=== PATIENT | male | born 1975 | race Caucasian/White ===

== ENCOUNTER → 2016-07-29 | Outpatient (CLI) | payer BC ==
[~2016-07-29] MED LIST: ADVIN10/60 INH; OXYC-57 PO
== END | disposition home or self-care (01) ==
LOC: C.PATHSPEC 15:32
PROVIDERS: ATTEND Urology
DX: Z30.2 Encounter for sterilization (principal)

== ENCOUNTER 2016-08-08 18:56 | Emergency (ER) | payer BC ==
[~2016-08-08] VITALS: Ht 177.8 cm; Wt 80.9 kg
[2016-08-08 19:01] VITALS: TEMP 36.7; Ht 177.8 cm; Wt 80.9 kg
[2016-08-08] MEDS ORDERED: OXYCODONE/ACETAMINOPHEN 5-325 TAB PO ONE (19:15)
[2016-08-08 19:38] LABS: URINE APPEARANCE CLEAR (CLEAR); URINE BILIRUBIN NEG (NEG); URINE COLOR YELLOW; URINE NITRITE NEG (NEG); URINE PH 5.5 (4.5-7.5); UROBILINOGEN NEG (NEG); ZZUR CULT IF INDIC CLEAN CATCH NO
[2016-08-08 19:45] LABS: MANUAL MICROSCOPIC REQUIRED? NO; REVIEW REQ? NO
--- NOTE | 2016-08-08 19:56 | EMERGENCY ROOM VISIT NOTE ---
History First contact with patient: 19:04 Chief Complaint: TESTICULAR PAIN Stated Complaint: R TESTICLE SWOLLEN, PAIN 10 DAYS AFTER VASECTOMY History of Present Illness The patient is a 40 year old male who presents to the Emergency Department by private vehicle for evaluation of his RIGHT testicular pain. The patient had a vasectomy performed [address] Zaldivar. He reports that he had been doing well until yesterday. He decided to ride his lawnmower to cut his grass. He felt some mild discomfort while riding a lawnmower. He has had worsening pain and swelling to the RIGHT testicle since. He had to call for today secondary to the pain. This is a first-time he has called off work and 15 years. He has tried ibuprofen without relief of symptoms. The patient rates his current discomfort as a 6/10. The patient denies any fevers, chills, nausea , vomiting, abdominal pain, hematochezia, melena, hematuria, or dysuria. Review of Systems A complete 10-point Review of Systems was discussed with the patient, with pertinent positives and negatives listed in the History of Present Illness. All remaining Review of Systems questions can be considered negative unless otherwise specified. Social History Smoking Status: Never Smoker Smokeless Tobacco Use: No Drug Use: none Marital Status: Housing Status: lives with family Occupation Status: employed Current/Historical Medications Scheduled Fluticasone Prop/Salmeterol (Advair Diskus 100/50 60 Dose), 1 PUFFS INH DAILY Scheduled PRN Oxycodone/Acetaminophen 5MG/325MG (Percocet 5MG/325MG), 1-2 TABS PO Q4 PRN for Pain Allergies Coded Allergies: No Known Allergies (Unverified , 08/08/16) Physical Exam Vital Signs Date Time Temp Pulse Resp B/P Pulse Ox O2 Delivery O2 Flow Rate FiO2 08/08/16 21:01 86 18 173/98 96 Room Air 08/08/16 19:01 36.7 110 16 175/98 99 Room Air Pain Rating (0-10): 6 Physical Exam VITAL SIGNS - Vital signs and nursing notes were reviewed. GENERAL - 40-year-old Male appearing his stated age who is in no acute distress. Communicates well with provider and answers questions appropriately. ABDOMEN - Abdominal contour flat and without pulsations or visible masses. BS normoactive all four quadrants. No tenderness to palpation appreciated throughout. No palpable masses, hepatosplenomegaly, or ascites noted. GENITOURINARY - circumcised male without penile lesions or adhesions. Moderate testicular tenderness to palpation appreciated to the RIGHT testicle with marked edema bilaterally. No palpable masses. PSYCH - A&Ox3 and cooperates fully with examiner. Pt is very pleasant and interacts well with examiner. Medical Decision & Procedures ER Provider Diagnostic Interpretation: Radiological imaging and reports were reviewed by myself. Radiologist's Interpretation as follows: ULTRASOUND TESTES AND SCROTUM CLINICAL HISTORY: Pain and swelling status post vasectomy. COMPARISON STUDY: No priors. TECHNIQUE: Real-time, grayscale, and color Doppler sonography of the testes and scrotum is performed. Images are reviewed in the transverse and longitudinal planes. FINDINGS: The testes are normal in size and homogeneous in echotexture. The right testis measures 5.0 x 3.1 x 3.5 cm and the left testis measures 5.0 x 3.0 x 2.8 cm. No intratesticular mass is seen. Testicular blood flow is normal and symmetric. Normal Doppler waveforms are identified in both testes. The epididymal heads are normal in appearance. No varicocele or hydrocele is seen. There is bilateral scrotal edema as well as edema along the spermatic cord bilaterally. This appears hyperemic on color imaging. No fluid collection is suggested. IMPRESSION: 1. Unremarkable sonographic assessment of the testes. 2. There is bilateral scrotal edema, as well as edema and mild hyperemia seen along the spermatic cord laterally. This is likely related to recent surgery. Laboratory Results Test 08/08/16 19:20 Urine Color YELLOW Urine Appearance CLEAR (CLEAR) Urine pH 5.5 (4.5-7.5) Urine Specific [place] 1.010 (1.000-1.030) Urine Protein NEG (NEG) Urine Glucose (UA) NEG (NEG) Urine Ketones NEG (NEG) Urine Occult Blood NEG (NEG) Urine Nitrite NEG (NEG) Urine Bilirubin NEG (NEG) Urine Urobilinogen NEG (NEG) Urine Leukocyte Esterase NEG (NEG) Medications Administered Medications (Trade) Dose Ordered Sig/Ayala Route Start Time Stop Time Status Last Admin Dose Admin Oxycodone/ Acetaminophen (Percocet 5-325mg Tab) 1 tab NOW ONCE PO 08/08/16 19:15 08/08/16 19:20 DC 08/08/16 19:25 1 TAB Ketorolac Tromethamine (Toradol Inj) 60 mg NOW STAT IM 08/08/16 20:40 08/08/16 20:41 DC 08/08/16 21:08 60 MG Oxycodone/ Acetaminophen (Percocet 5/ 325MG Home Pack) 1 homepack UD ONCE PO 08/08/16 21:00 08/08/16 21:01 DC 08/08/16 21:29 1 HOMEPACK ED Course Patient was seen and evaluated by myself. Urinalysis was obtained. Scrotal ultrasound was ordered. Urinalysis is unremarkable. The patient was provided 1 Percocet for pain. Ultrasound results above. I did discuss the case with Dr. Zaldivar. He suggests IM Toradol as well as icing the area for comfort and tight fitting underwear. The patient has an outpatient appointment on . He'll keep this point. He was provided pain medication for breakthrough pain at home. He was educated on worrisome symptoms for return visit to the emergency department. Patient discharged home in good condition. Medical Decision Given the patient's presentation and exam findings, I did elect to perform the above-mentioned workup. Patient presents today with creasing pain and scrotal swelling which have been acutely last evening while mowing his grass. There is no direct trauma to the area. He recently had a vasectomy. The patient has no fever. There is no erythema or concern for infectious findings on physical exam. Ultrasound was performed. No significant findings other than hyperemia which is likely related to recent surgical intervention. Patient's pain was adequately controlled the emergency department. I did consult urology. He will follow-up on an outpatient. He will return for changing/ worsening symptoms. Patient discharged home afebrile and in good condition. In the evaluation and treatment of this patient, the following differential diagnoses were considered: Inguinal hernia, hematoma, cellulitis, necrotizing fasciitis, Adonis's Gangrene, amongst others. Impression Primary Impression: Testicular pain, right Additional Impression: Swelling of scrotum Departure Information Dispostion Home / Self-Care Condition GOOD Prescriptions Oxycodone/Acetaminophen 5MG/325MG (PERCOCET 5MG/325MG) Tab 1-2 TABS PO Q4 Y for Pain, #16 TAB For Initial Treatment Prov: Dejuan Whitlock, EDDA 08/08/16 Referrals No Doctor, Assigned (PCP) Papo Zaldivar M.D. Patient Instructions My [facility] Additional Instructions You've been seen in the emergency department today for your testicular pain and scrotal swelling. Continue to wear tight fitting underwear. Ice the testicle for comfort. You have been prescribed Percocet to be used for pain control. This is a narcotic medication. You cannot drive or consume alcohol while on this medicine. This medicine should only be used for pain that cannot be controlled with [id number]-nvmulry pain medicines. For pain control, you can use the following [id number] medicines (if >12 yo): - Regular strength (325mg/tab) Tylenol (acetaminophen) 2 tabs every 4-6 hours as needed. Do not exceed 12 tablets in a 24 hour period. Avoid taking more than 4 grams (4000 mg) of Tylenol per day. This includes any other sources of acetaminophen you may take on a regular basis. - Regular strength (200 mg/tab) Advil (ibuprofen) 1-2 tabs every 4-6 hours as needed. Do not exceed a dose of 3200 mg per day. Keep your follow-up appointment with Dr. Zaldivar as scheduled. Return for any changing or worsening symptoms. Problem Qualifiers
--- NOTE | 2016-08-08 20:11 | DIAGNOSTIC IMAGING REPORT ---
ULTRASOUND TESTES AND SCROTUM CLINICAL HISTORY: Pain and swelling status post vasectomy. COMPARISON STUDY: No priors. TECHNIQUE: Real-time, grayscale, and color Doppler sonography of the testes and scrotum is performed. Images are reviewed in the transverse and longitudinal planes. FINDINGS: The testes are normal in size and homogeneous in echotexture. The right testis measures 5.0 x 3.1 x 3.5 cm and the left testis measures 5.0 x 3.0 x 2.8 cm. No intratesticular mass is seen. Testicular blood flow is normal and symmetric. Normal Doppler waveforms are identified in both testes. The epididymal heads are normal in appearance. No varicocele or hydrocele is seen. There is bilateral scrotal edema as well as edema along the spermatic cord bilaterally. This appears hyperemic on color imaging. No fluid collection is suggested. IMPRESSION: 1. Unremarkable sonographic assessment of the testes. 2. There is bilateral scrotal edema, as well as edema and mild hyperemia seen along the spermatic cord laterally. This is likely related to recent surgery. Electronically signed by: Jorge Hill M.D. 08/08/2016 8:09 PM Dictated Date/Time: 08/08/2016 8:07 PM
[2016-08-08] MEDS ORDERED: ADVIN10/60 INH (20:12)
[2016-08-08] MEDS ORDERED: KETOROLAC TROMETHAMINE 60 MG/2 ML VIAL IM STA (20:40)
[2016-08-08] MEDS ORDERED: OXYC-57 PO (20:53)
[2016-08-08] MEDS ORDERED: PERCOCET HOME PACK PO ONE (21:00)
[2016-08-08 21:01] VITALS: BP 173/98; PULSE 86; O2SAT 96
== END 2016-08-08 21:29 | disposition home or self-care (01) ==
LOC: C.EDB 18:57
DX: N50.811 Right testicular pain (principal); N50.89 Other specified disorders of the male genital organs